=== PATIENT | female | born 1995 | race Caucasian/White ===

== ENCOUNTER 2019-01-30 17:56 | Outpatient (CLI) | payer OTHER ==
[2019-01-30 18:32] LABS: AMORPHOUS SEDIMENT,URINE TRACE /HPF; APPEARANCE,URINE SLIGHTLY-CLOUDY; BILIRUBIN,URINE NEGATIVE (NEGATIVE); COLOR,URINE STRAW; GLUCOSE, URINE NEGATIVE (NEGATIVE); KETONES,URINE NEGATIVE (NEGATIVE); LEUKOCYTE ESTERASE,URINE NEGATIVE (NEGATIVE); NITRITE,URINE NEGATIVE (NEGATIVE); PROTEIN,URINE NEGATIVE (NEGATIVE); URINE SPECIFIC GRAVITY 1.002; UROBILINOGEN,URINE NEGATIVE mg/dL (<2.0)
[2019-01-30 18:53] LABS: URINE AMPHETAMINES SCREEN NEGATIVE; URINE BARBITURATES SCREEN NEGATIVE; URINE BENZODIAZEPINES SCREEN NEGATIVE; URINE COCAINE SCREEN NEGATIVE; URINE MARIJUANA (THC) SCREEN NEGATIVE; URINE METHADONE SCREEN NEGATIVE; URINE PHENCYCLIDINE SCREEN NEGATIVE
--- NOTE | 2019-01-30 20:00 | RADIOLOGY REPORT (SQ) ---
EXAM DESCRIPTION: U/S OB LIMITED COMPLETED DATE/TIME: 01/30/2019 7:43 pm REASON FOR STUDY: cervical length, cramping COMPARISON: None. TECHNIQUE: Limited transabdominal grayscale ultrasound for evaluation of specific requested obstetri xochilt parameters. LIMITATIONS: None. FINDINGS: CERVICAL LENGTH: 3.7 cm Closed. ORLIN: 6.1 cm LVP. FHR: 137 beats per minute. PRESENTATION: Cephalic. PLACENTA: Anterior ANATOMY: Not assessed OTHER: No other significant findings. IMPRESSION: LIMITED OBSTETRICAL ULTRASOUND WITH MEASURED PARAMETERS DELINEATED ABOVE. Trimester of : Second trimester - 13 weeks 1 day to 27 weeks 6 days. TECHNICAL DOCUMENTATION: JOB ID: [id number] [employer]- All Rights Reserved Reading location - IP/workstation name: [employer]
== END 2019-01-30 21:06 | disposition home or self-care (01) ==
LOC: LC 17:56
PROVIDERS: ATTEND Obstetrics & Gynecology
PROC: 4A1HXCZ Monitoring of Products of Conception, Cardiac Rate, External Approach (ICD-10-PCS; principal; 2019-01-30)
DX: O47.02 False labor before 37 completed weeks of gestation, second trimester (principal); Z3A.27 27 weeks gestation of pregnancy
CPT/HCPCS: 76815; 80307; 81001

== ENCOUNTER 2019-03-02 09:33 | Outpatient (CLI) | payer OTHER ==
[2019-03-02 10:20] LABS: APPEARANCE,URINE SLIGHTLY-CLOUDY; BILIRUBIN,URINE NEGATIVE (NEGATIVE); COLOR,URINE YELLOW; GLUCOSE, URINE NEGATIVE (NEGATIVE); KETONES,URINE NEGATIVE (NEGATIVE); LEUKOCYTE ESTERASE,URINE NEGATIVE (NEGATIVE); NITRITE,URINE NEGATIVE (NEGATIVE); PROTEIN,URINE NEGATIVE (NEGATIVE); URINE SPECIFIC GRAVITY 1.014; UROBILINOGEN,URINE NEGATIVE mg/dL (<2.0)
[2019-03-02 10:32] LABS: ADD MANUAL MICROSCOPIC YES
[2019-03-02 10:33] LABS: BACTERIA,URINE 2+ /HPF; RBC,URINE NONE SEEN /HPF
[2019-03-02 10:40] LABS: RBCS (WET MOUNT) RARE RBCS SEEN; T.VAGINALIS (WET MOUNT) NO TRICHOMONAS SEEN; WBCS (WET MOUNT) 2+ WBCS SEEN; YEAST (WET MOUNT) NO YEAST SEEN
[2019-03-02 10:41] LABS: BACTERIA (WET MOUNT) 4+ BACTERIA SEEN; EPITHELIALS (WET MOUNT) 4+ EPITHELIALS SEEN
[2019-03-02 10:58] LABS: ABSOLUTE BASOPHILS # (AUTO) 0.1 10^3/uL (0.0-0.2); ABSOLUTE EOSINOPHILS # (AUTO) 0.2 10^3/uL (0.0-0.6); ABSOLUTE LYMPHOCYTES (AUTO) 1.3 10^3/uL (0.5-4.7); ABSOLUTE MONOCYTES (AUTO) 0.6 10^3/uL (0.1-1.4); ABSOLUTE NEUT (AUTO) 8.3 10^3/uL (1.7-8.2); BASOPHILS % (AUTO) 0.9 % (0-2); EOSINOPHILS % (AUTO) 2.3 % (0-6); HEMATOCRIT 32.6 % (36.0-47.0); HEMOGLOBIN 11.5 g/dL (12.0-15.5); LYMPHOCYTES % (AUTO) 12.5 % (13-45); MEAN CORPUSCULAR HEMOGLOBIN 30.3 pg (27.0-33.4); MEAN CORPUSCULAR HGB CONC 35.1 g/dL (32.0-36.0); MEAN CORPUSCULAR VOLUME 86 fl (80-97); MONOCYTES % (AUTO) 5.9 % (3-13); PLATELET COUNT 243 10^3/uL (150-450); RED BLOOD COUNT 3.79 10^6/uL (3.72-5.28); RED CELL DISTRIBUTION WIDTH 12.3 % (11.5-14.0); SEGMENTED NEUTROPHILS % (AUTO) 78.4 % (42-78); TOTAL CELLS COUNTED % (AUTO) 100 %; WHITE BLOOD COUNT 10.6 10^3/uL (4.0-10.5)
[2019-03-02 11:01] LABS: URINE AMPHETAMINES SCREEN NEGATIVE; URINE BARBITURATES SCREEN NEGATIVE; URINE BENZODIAZEPINES SCREEN NEGATIVE; URINE COCAINE SCREEN NEGATIVE; URINE MARIJUANA (THC) SCREEN NEGATIVE; URINE METHADONE SCREEN NEGATIVE; URINE PHENCYCLIDINE SCREEN NEGATIVE
[2019-03-02 12:07] LABS: CHLAM PCR NOT DETECTED (NOT DETECT)
== END 2019-03-02 12:25 | disposition home or self-care (01) ==
LOC: LC 09:33
PROVIDERS: ATTEND Obstetrics & Gynecology Gynecology
PROC: 4A1HXCZ Monitoring of Products of Conception, Cardiac Rate, External Approach (ICD-10-PCS; principal; 2019-03-02)
DX: Z34.03 Encounter for supervision of normal first pregnancy, third trimester (principal); Z3A.31 31 weeks gestation of pregnancy
CPT/HCPCS: 36415; 80307; 81001; 85025; 87210; 87491; 87591

== ENCOUNTER 2019-04-05 17:18 | Outpatient (CLI) | payer OTHER ==
[2019-04-05 18:43] LABS: APPEARANCE,URINE CLEAR; BILIRUBIN,URINE NEGATIVE (NEGATIVE); COLOR,URINE YELLOW; GLUCOSE, URINE NEGATIVE (NEGATIVE); KETONES,URINE 20 mg/dL (NEGATIVE); LEUKOCYTE ESTERASE,URINE NEGATIVE (NEGATIVE); NITRITE,URINE NEGATIVE (NEGATIVE); PROTEIN,URINE NEGATIVE (NEGATIVE); URINE SPECIFIC GRAVITY 1.005; UROBILINOGEN,URINE NEGATIVE mg/dL (<2.0)
--- NOTE | 2019-04-05 19:05 | Non Stress Test Report ---
Non Stress Test Datetime Report Generated by CPN: 04/05/2019 19:05 DEMOGRAPHIC EGA NST: 36.3 INDICATION Indication for Study: Ordered by Provider; Other Indication for Study (NST) Other: LC VITAL SIGNS Temperature - NST: 98.8 Pulse - NST: 92 RESP - NST: 15 NBPSYS NST: 139 NBPDIA NST: 77 MONITORING Monitor Explained: Monitor Explained; Test Explained; Patient Verbalized Understanding Time on Monitor: 04/05/2019 17:38 Time off Monitor: 04/05/2019 18:52 NST Duration: 74 NST INTERVENTIONS NST Interventions: PO Hydration Physician Notified NST: Dr Mckinley BABY A: [id number] BABY A Movement : Present Contraction Frequency : irregular FHR Baseline : 120 Accelerations : 15X15 Decelerations : None Variability : Moderate 6-25bpm NST Review: Meets Criteria for Reactive NST NST Review and Verified By : Fer Subramanian RN NST Results: Reactive NST REPORT Report Trigger: Send Report
[2019-04-05 19:15] LABS: URINE AMPHETAMINES SCREEN NEGATIVE; URINE BARBITURATES SCREEN NEGATIVE; URINE BENZODIAZEPINES SCREEN NEGATIVE; URINE COCAINE SCREEN NEGATIVE; URINE MARIJUANA (THC) SCREEN NEGATIVE; URINE METHADONE SCREEN NEGATIVE; URINE PHENCYCLIDINE SCREEN NEGATIVE
== END 2019-04-05 18:57 | disposition home or self-care (01) ==
LOC: LC 17:18
PROVIDERS: ATTEND Obstetrics & Gynecology Gynecology
PROC: 4A1HXCZ Monitoring of Products of Conception, Cardiac Rate, External Approach (ICD-10-PCS; principal; 2019-04-05)
DX: O47.1 False labor at or after 37 completed weeks of gestation (principal); Z3A.36 36 weeks gestation of pregnancy
CPT/HCPCS: 59025; 80307; 81005

== ENCOUNTER 2019-05-01 06:51 | Inpatient (IN) | payer OTHER ==
[2019-05-02] MEDS ORDERED: CEFAZOLIN SODIUM 2 GM in DEXTROSE 5%-WATER 100 ML IV PRN (08:08)
[2019-05-02 08:26] LABS: APPEARANCE,URINE SLIGHTLY-CLOUDY; BILIRUBIN,URINE NEGATIVE (NEGATIVE); COLOR,URINE YELLOW; GLUCOSE, URINE NEGATIVE (NEGATIVE); KETONES,URINE NEGATIVE (NEGATIVE); LEUKOCYTE ESTERASE,URINE MODERATE (NEGATIVE); NITRITE,URINE NEGATIVE (NEGATIVE); PROTEIN,URINE NEGATIVE (NEGATIVE); URINE SPECIFIC GRAVITY 1.014; UROBILINOGEN,URINE NEGATIVE mg/dL (<2.0)
[2019-05-02 08:34] LABS: HEMATOCRIT 32.2 % (36.0-47.0); HEMOGLOBIN 11.3 g/dL (12.0-15.5); MEAN CORPUSCULAR HEMOGLOBIN 28.6 pg (27.0-33.4); MEAN CORPUSCULAR HGB CONC 35.1 g/dL (32.0-36.0); MEAN CORPUSCULAR VOLUME 82 fl (80-97); PLATELET COUNT 225 10^3/uL (150-450); RED BLOOD COUNT 3.94 10^6/uL (3.72-5.28); RED CELL DISTRIBUTION WIDTH 12.8 % (11.5-14.0); WHITE BLOOD COUNT 8.5 10^3/uL (4.0-10.5)
[2019-05-02 08:44] LABS: URINE AMPHETAMINES SCREEN NEGATIVE; URINE BARBITURATES SCREEN NEGATIVE; URINE BENZODIAZEPINES SCREEN NEGATIVE; URINE COCAINE SCREEN NEGATIVE; URINE MARIJUANA (THC) SCREEN NEGATIVE; URINE METHADONE SCREEN NEGATIVE; URINE PHENCYCLIDINE SCREEN NEGATIVE
[2019-05-02] MEDS ORDERED: MIDAZOLAM 2 MG/2 ML INJ ONE (10:46)
[2019-05-02] MEDS ORDERED: OXYTOCIN 10 UNIT/ML VIAL ONE (10:46)
[2019-05-02] MEDS ORDERED: FENTANYL CITRATE INJ/PF 100 MCG/2 ML AMPUL ONE (10:47)
[2019-05-02] MEDS ORDERED: PROMETHAZINE HCL INJ 25 MG/1 ML VIAL IV PRN ×3 (11:14→12:19)
[2019-05-02] MEDS ORDERED: FENTANYL CITRATE INJ/PF 100 MCG/2 ML AMPUL IV PRN ×3 (11:14)
[2019-05-02] MEDS ORDERED: DIPHENHYDRAMINE HCL 50 MG/ML VIAL IV PRN (11:14)
[2019-05-02] MEDS ORDERED: OXYCODONE-ACETAMINOPHEN 5-325 MG TABLET PO PRN ×4 (11:14→12:19)
[2019-05-02] MEDS ORDERED: MEPERIDINE HCL/PF INJ 25 MG/1 ML DISP.SYRIN IV PRN (11:14)
--- NOTE | 2019-05-02 12:13 | PDOC DELIVERY SUMMARY ---
Delivery Summary - Maternal Hx : I TRINIDAD: 05/02/19 Gestational Age: 40.2 Risk Factors: Other - suspected macrosomia Ruptured Membranes: AROM Fluids: Clear - Delivery Presentation: Vertex Heart Rate Monitoring: Done Pre-Operatively Support Person Present: Yes Location: OR : Scheduled Placenta: Within Normal Limits Placenta Description: Normal appearing Number of Vessels (Cord): 3 Nuchal Cord: No Delivery of Placenta Date: 05/02/19 Delivery of Placenta Time: 11:28 Delivery Quantitative Blood Loss (QBL): 814 - Medications Type of Anesthesia:: Spinal - Infant Assess and Care Baby 1 Female Delivery of Infant Date: 05/02/19 Delivery of Infant Time: 11:27 at 1 minute: 8 at 5 minutes: 9 Preprinted Number On Band: YES Infant Skin to Skin: Yes Skin to Skin (Mins): 5 To Nursery At: 11:35 Mode of Transport: Bassinet Delivery Weight: 4,010 Infant Delivery Length: 21 in - Delivery Personnel Film Printer: MIRNA Hill RN: JULIOCESAR MENESES MD: ANABEL
[2019-05-02] MEDS ORDERED: DIPH/PERTUSS(ACELL)/TETANUS VAC/PF 0.5 ML SYR (>=10YO) IM PRN (12:19)
[2019-05-02] MEDS ORDERED: RINGERS SOLUTION,LACTATED 1,000 ML IV PRN (12:19)
[2019-05-02] MEDS ORDERED: SIMETHICONE 80 MG TAB.CHEW PO PRN (12:19)
[2019-05-02] MEDS ORDERED: ACETAMINOPHEN 325 MG TABLET PO PRN (12:19)
[2019-05-02] MEDS ORDERED: ACETAMINOPHEN 1,000 MG/100 ML RTUPB IV PRN (12:19)
[2019-05-02] MEDS ORDERED: OXYTOCIN/NORMAL SALINE 20 UNIT/1,000 ML RTUINJ IV PRN (12:19)
--- NOTE | 2019-05-02 12:19 | Operative Report ---
Operative Report DATE OF SURGERY: 05/02/19 PREOPERATIVE DIAGNOSIS: 1. Intrauterine at 40-2/7 weeks. 2. Suspec mark macrosomia. 3. GBS negative. 4. Rh-. 5. Rubella immune POSTOPERATIVE DIAGNOSIS: Same plus macrosomia OPERATION: Primary low transverse section via Pfannenstiel SURGEON: SHAWN SUBRAMANIAN ANESTHESIA: Spinal TISSUE REMOVED OR ALTERED: Placenta COMPLICATIONS: None QUANTITATIVE BLOOD LOSS: 814 INTRAOPERATIVE FINDINGS: Female fetus in a cephalic position; delivered at 1127 with vacuum-assisted with pop-off x1 and then not reapplied; Apgars 8 at 1, 9 at 5 with a weight of 8 pounds 13 ounces; normal uterus, bilateral tubes and ovaries PROCEDURE: The patient was taken to the operating room where spinal anesthesia was obtained and found to be adequate. She was then prepped and draped in the normal sterile fashion and placed in the dorsal supine position with a leftward tilt. A Pfannenstiel skin incision was then made and carried through to the underlying layers of the fascia with the scalpel. The fascia was incised in the midline and the incision extended laterally with the Epps scissors. The superior aspect of the fascial incision was then grasped with Abhi clamps elevated and the underlying rectus muscles dissected off both bluntly and sharply. Attention was then turned to the inferior aspect of the fascial incision which in a similar fashion was grasped, tented up with Abhi clamps, and the rectus muscles dissected off both bluntly and sharply. The rectus muscles were then in the midline and the peritoneum was identified and entered both sharply and bluntly. The peritoneal incision was then extended superiorly and inferiorly with good visualization of the bladder. The bladder blade was inserted and the vesicouterine peritoneum identified grasped with Mosotho pickups and entered sharply with the Metzenbaum scissors. This incision was then extended laterally with the Metzenbaum scissors and a bladder flap created digitally. The bladder blade was then reinserted and the lower uterine segment was incised in a transverse fashion with the scalpel. The uterine incision was then extended bluntly and with the bandage scissors. The bladder blade was removed and the infant's head was delivered from cephalic presentation, atraumatically. A vacuum was placed with 1 pop-off and then not reapplied. The cord doubly clamped and cut. The was handed off to waiting camp attendant. The placenta was then delivered manually and the uterus exteriorized and cleared of all clots and debris. The uterine incision was then repaired with 0 Vicryl in a running locked fashion. 0-Chromic was used to obtain hemostasis via imbrication of the initial layer. The bladder flap was then repaired with 3-0 Vicryl in a running fashion. The uterus was returned to the patient's abdomen and Interceed was placed overlying the uterine incision, as well as a piece placed vertically on the anterior surface of the uterus, to prevent adhesions. The peritoneum was then closed with 2-0 Vicryl in a running fashion. All operative sites were noted to be hemostatic. The fascia was reapproximated with 0 Vicryl in a running fashion from each lateral edge to the midline. The subcutaneous fat layer was then closed in an interrupted fashion with 3-0 vicryl. The skin was closed with 4-0 Monocryl in a running, subcuticular fashion. The patient tolerated the procedure well. Sponge, lap, needle and instrument counts are correct x 2. 2 g of Ancef were given prior to skin incision. The patient was taken to the recovery area awake and in stable condition.
[2019-05-02] MEDS ORDERED: ONDANSETRON HCL INJ/PF 4 MG/2 ML SDV ONE (12:31)
[2019-05-02] MEDS ORDERED: KETOROLAC TROMETHAMINE INJ/PF 30 MG/1 ML SDV ONE ×2 (12:50→13:08)
[2019-05-02] MEDS ORDERED: HYDROMORPHONE HCL INJ/PF 2 MG/ML AMPULE ONE (12:51)
[2019-05-02] MEDS ORDERED: ACETAMINOPHEN 1,000 MG/100 ML RTUPB IV ONE (12:51)
[2019-05-02] MEDS: HYDROMORPHONE HCL INJ/PF 2 MG/ML AMPULE IV PRN ×2 (13:43→17:36)
[2019-05-02] MEDS: KETOROLAC TROMETHAMINE INJ/PF 30 MG/1 ML SDV IV SCH ×2 (15:18→21:50)
[2019-05-02] MEDS: DOCUSATE SODIUM 100 MG CAPSULE PO SCH (17:36)
[2019-05-03] MEDS: KETOROLAC TROMETHAMINE INJ/PF 30 MG/1 ML SDV IV SCH (05:50)
[2019-05-03 06:24] LABS: HEMATOCRIT 28.8 % (36.0-47.0); MEAN CORPUSCULAR HEMOGLOBIN 28.6 pg (27.0-33.4); MEAN CORPUSCULAR HGB CONC 34.6 g/dL (32.0-36.0); MEAN CORPUSCULAR VOLUME 83 fl (80-97); PLATELET COUNT 213 10^3/uL (150-450); RED BLOOD COUNT 3.49 10^6/uL (3.72-5.28); RED CELL DISTRIBUTION WIDTH 12.4 % (11.5-14.0); WHITE BLOOD COUNT 10.3 10^3/uL (4.0-10.5)
--- NOTE | 2019-05-03 10:17 | PDOC PROGRESS REPORT ---
Subjective-OB Progress Note for:: 05/03/19 Physical Exam (OB) Vital Signs: Temp Pulse Resp BP Pulse Ox 97.7 F 82 14 109/67 97 05/03/19 08:00 05/03/19 08:00 05/03/19 08:00 05/03/19 08:00 05/03/19 08:00 Intake & Output 05/02/19 05/03/19 05/04/19 06:59 06:59 06:59 Intake Total 400 Output Total 850 Balance -450 Weight 85.6 kg - PIH/Pre-Eclampsia DTR's: 1 + Clonus: Negative Headache: Absent Epigastric Pain: No Visual Changes: No - Dressing Removed: No Incision: Dressing Closure Type: op site - Lochia Lochia Amount: Scant < 10 ml Lochia Color: Rubra/Red - Abdomen Description: Soft, Round Hernia Present: No Bowel Sounds: Normoactive Flatus Presence: Present Stool: No Fundal Description: Firm, Midline Fundal Height: u/u - u/2 Objective-Diagnostic Laboratory: 05/03/19 05:38 05/03/19 05/03/19 05:38 05:38 WBC 10.3 RBC 3.49 L Hgb 10.0 L Hct 28.8 L MCV 83 MCH 28.6 MCHC 34.6 RDW 12.4 Plt Count 213 Blood Type A NEGATIVE
[2019-05-03] MEDS: DOCUSATE SODIUM 100 MG CAPSULE PO SCH ×2 (10:23→17:00)
[2019-05-03] MEDS: PRENATAL VITAMIN W DHA CAPSULE PO SCH (10:25)
[2019-05-03] MEDS: IBUPROFEN 800 MG TABLET PO SCH ×2 (11:40→17:00)
[2019-05-04] MEDS: IBUPROFEN 800 MG TABLET PO SCH ×3 (00:31→13:18)
[2019-05-04] MEDS: DOCUSATE SODIUM 100 MG CAPSULE PO SCH (09:43)
[2019-05-04] MEDS: PRENATAL VITAMIN W DHA CAPSULE PO SCH (09:44)
--- NOTE | 2019-05-04 12:06 | PDOC DISCHARGE SUMMARY ---
Impression - Admit/DC Date/PCP Admission Date/Primary Care Provider: 05/02/19 07:40 GALINA ASTUDILLO MD Discharge Date: 05/04/19 - Discharge Diagnosis (1) Delivery by elective caesarean section Is this a current diagnosis for this admission?: Yes (2) History depression and anxiety Is this a current diagnosis for this admission?: Yes (3) Is this a current diagnosis for this admission?: Yes - Additional Information Resuscitation Status: Full Code Discharge Diet: Regular Discharge Activity: Balance Activity w/Rest, No Lifting Over 10 Pounds, No Lifting/Push/Pulling, Pelvic Rest, No tub bath Referrals: [facility] [Provider Group] (Please call and schedule a 1 week follow up for an incision check.) Prescriptions: Ibuprofen [Motrin 800 mg Tablet] 800 mg PO Q8HP PRN #60 tablet PRN Reason: Home Medications: Nitrofurantoin Macrocrystal [Nitrofurantoin] 1 tab PO DAILY 01/30/19 Vitamin [-U Multiple Vitamin Capsule] 1 tab PO DAILY 01/30/19 Ibuprofen [Motrin 800 mg Tablet] 800 mg PO Q8HP PRN #60 tablet 05/04/19 HPI Gestational Age: 40+2 Reason(s) for Admission: Ceasarean Section-Primary Procedures: NST Intrapartum Procedure(s): : Low Cervical, Transverse Hospital Course Hospital Course: admitted for primary elective c/s for suspected macrosomia and underwent LTCS Results Laboratory Results: WBC 10.3 10^3/uL (4.0-10.5) 05/03/19 05:38 RBC 3.49 10^6/uL (3.72-5.28) L 05/03/19 05:38 Hgb 10.0 g/dL (12.0-15.5) L 05/03/19 05:38 Hct 28.8 % (36.0-47.0) L 05/03/19 05:38 MCV 83 fl (80-97) 05/03/19 05:38 MCH 28.6 pg (27.0-33.4) 05/03/19 05:38 MCHC 34.6 g/dL (32.0-36.0) 05/03/19 05:38 RDW 12.4 % (11.5-14.0) 05/03/19 05:38 Plt Count 213 10^3/uL (150-450) 05/03/19 05:38 Urine Color YELLOW 05/02/19 08:00 Urine Appearance SLIGHTLY-CLOUDY 05/02/19 08:00 Urine pH 8.0 (5.0-9.0) 05/02/19 08:00 Ur Specific [place] 1.014 05/02/19 08:00 Urine Protein NEGATIVE mg/dL (NEGATIVE) 05/02/19 08:00 Urine Glucose (UA) NEGATIVE mg/dL (NEGATIVE) 05/02/19 08:00 Urine Ketones NEGATIVE mg/dL (NEGATIVE) 05/02/19 08:00 Urine Blood NEGATIVE (NEGATIVE) 05/02/19 08:00 Urine Nitrite NEGATIVE (NEGATIVE) 05/02/19 08:00 Urine Bilirubin NEGATIVE (NEGATIVE) 05/02/19 08:00 Urine Urobilinogen NEGATIVE mg/dL (<2.0) 05/02/19 08:00 Ur Leukocyte Esterase MODERATE (NEGATIVE) H 05/02/19 08:00 Urine WBC (Auto) 3 /HPF 05/02/19 08:00 Urine RBC (Auto) 2 /HPF 05/02/19 08:00 Urine Bacteria (Auto) TRACE /HPF 05/02/19 08:00 Squamous Epi Cells Auto 4 /HPF 05/02/19 08:00 Urine Mucus (Auto) RARE /LPF 05/02/19 08:00 Urine Ascorbic Acid NEGATIVE (NEGATIVE) 05/02/19 08:00 Urine Opiates Screen NEGATIVE 05/02/19 08:00 Urine Methadone Screen NEGATIVE 05/02/19 08:00 Ur Barbiturates Screen NEGATIVE 05/02/19 08:00 Ur Phencyclidine Scrn NEGATIVE 05/02/19 08:00 Ur Amphetamines Screen NEGATIVE 05/02/19 08:00 U Benzodiazepines Scrn NEGATIVE 05/02/19 08:00 Urine Cocaine Screen NEGATIVE 05/02/19 08:00 U Marijuana (THC) Screen NEGATIVE 05/02/19 08:00 Blood Type A NEGATIVE 05/03/19 05:38 Antibody Screen NEGATIVE 05/02/19 08:10 Screen NEGATIVE 05/03/19 05:38 Rhogam Indicated Cancelled 05/03/19 05:38 Plan Plan of Treatment: return to [facility] in one week for incision check
[2019-05-04 12:23] VITALS: BP 120/72
== END 2019-05-04 13:20 | disposition home or self-care (01) | DRG 788 ==
LOC: 2S 05-02 07:40
PROVIDERS: ADMIT Obstetrics & Gynecology; ATTEND Obstetrics & Gynecology
PROC: 3E0234Z Introduction of Serum, Toxoid and Vaccine into Muscle, Percutaneous Approach (ICD-10-PCS; 2019-05-02)
PROC: 10D00Z1 Extraction of Products of Conception, Low, Open Approach (ICD-10-PCS; principal; 2019-05-02 09:45)
DX: O36.63X0 Maternal care for excessive fetal growth, third trimester, not applicable or unspecified (principal); O48.0 Post-term pregnancy; O26.893 Other specified pregnancy related conditions, third trimester; Z37.0 Single live birth; Z3A.40 40 weeks gestation of pregnancy; Z67.11 Type A blood, Rh negative
CPT/HCPCS: 1961; 36415; 59025; 80307; 81001; 85027; 85461; 86850; 86900; 86901; 94799; C1765; J0131; J1170; J1885; J2250; J2405; J2590; J2790; J3010; J7120